=== PATIENT | male | born 1980 | race Caucasian/White ===

== ENCOUNTER 2019-07-18 18:55 | Emergency (ER) | payer OTHER, SELFPAY ==
[2019-07-18 19:17] VITALS: BP 138/86; PULSE 114; RESP 16; TEMP 39.9; O2SAT 93
--- NOTE | 2019-07-18 19:58 | ED.URI ---
HPI - URI/Sore Throat General Chief Complaint: Upper Respiratory Infection Stated Complaint: Headache/Hoarse Time Seen by Provider: 07/18/19 19:58 Source: patient, family and RN notes reviewed Mode of arrival: ambulatory Limitations: no limitations History of Present Illness HPI Narrative: 39 year old male accompanied by father presents to express care with complaints of fever, sore throat, cough, headache, and some nasal drainage which is clear for the past 2 days. Patient states that he has been sleeping a lot and has had generalized body aches rates his discomfort as 6/10. Patient has 39.9C temperature noted in triage with SAO2 noted to be 93% on room air. Patient has clear lungs on auscultation, denies any noted wheezing, or shortness of breath. MD elicited complaint: fever, cough, sore throat, rhinorrhea, nasal congestion and other (headache) Onset (ago): day(s) (2) Consistency: constant and progressively worsening Severity: moderate Pain scale (0-10): 6 Description of mucous: clear Able to tolerate fluids by mouth: Yes Exacerbating factors: swallowing, exertion and deep breaths Relieving factors: NSAID Associated symptoms: fever, chills, voice changes, myalgias, headache, rhinorrhea, nasal congestion, sore throat and cough Treatments prior to arrival: acetaminophen and ibuprofen Related Data Home Medications Medication Instructions Recorded Confirmed No Home Medications 07/18/19 07/18/19 Allergies Allergy/AdvReac Type Severity Reaction Status Date / Time NKDA Allergy Mild Uncoded 11/28/07 22:22 Review of Systems Review of Systems: Narrative: CONSTITUTIONAL:Positive fever, chills, or sweats. EYES: Denies visual changes, redness, or discharge. ENT: Positive rhinorrhea, congestion, sore throat, no otalgia. CARDIOVASCULAR: Denies chest pain, palpitations, or edema. RESPIRATORY:Positive for cough denies dyspnea. GASTROINTESTINAL: Denies abdominal pain, nausea, vomiting, or diarrhea. GENITOURINARY: Denies dysuria or hematuria. SKIN: Denies rash or itching. MUSCULOSKELETAL: Denies back pain, joint pain, positive for body aches. NEUROLOGIC: Positive headache,no numbness, or weakness. PSYCHIATRIC: Denies anxiety or depression. All systems reviewed & are unremarkable except as noted in HPI and below PMFSH Past Medical History Medical History (Updated 07/25/19 @ 21:52 by Louise Rubio NP) No significant past medical history Social History Social History (Updated 07/25/19 @ 21:45 by Louise Rubio NP) Smoking status: Never smoker Living arrangements: with family Gender identity (if verbalized by the patient): Male Comments At time of signature, agree with nursing past medical,, social history. There is no relevant family history pertinent to the presenting complaint Exam Const: General: alert and ill appearing Nutritional Appearance: obese Orientation/consciousness: patient oriented x3 HENMT: Ears: external ears normal and TM's normal bilaterally General nose exam: Nasal discharge present Mouth: Yes Normal oral and palatal mucosa present and Yes lip normal Teeth and gingiva: dentition normal Other: throat red with no lesions or exudate, no acute swelling or redness of tonsils Eyes: Conjunctivae: conjunctivae normal EOM: EOMs intact bilaterally Neck: Neck: normal visual inspection and no lymphadenopathy Chest: Chest palpation & inspection: normal inspection of the chest Resp: Effort & Inspection: normal respiratory effort Auscultation: clear to auscultation bilaterally Cardio: Rate: regular rate and tachycardic Rhythm: regular rhythm GI: GI Palp: Yes Soft to palpation Percussion: Yes normal to percussion Auscultation: normal bowel sounds : General: Yes no CVA tenderness Testes: Testes normal Back/Spine/Pelvis: Back: no CVA tenderness Skin: General skin exam: normal color and pallor Rashes: no rashes Neuro: General: patient oriented x3, moves all extremities, no focal motor
[2019-07-18 20:07] VITALS: TEMP 39.9
[2019-07-18] MEDS: IBUPROFEN 600 MG TABLET PO (20:07)
== END 2019-07-18 21:01 | disposition home or self-care (01) ==
PROVIDERS: Emergency Provider Registered Nurse
DX: J11.1 Influenza due to unidentified influenza virus with other respiratory manifestations (principal); J06.9 Acute upper respiratory infection, unspecified
CPT/HCPCS: 87081; 87804; 87880; 99213; A9270; G0463